=== PATIENT | female | born 1985 | race Caucasian/White ===

== ENCOUNTER 2025-10-22 21:08 | Emergency (ER) | payer MEDICAID ==
[~2025-10-22] VITALS: Ht 172.7 cm; Wt 99.8 kg
[2025-10-22 21:47] LABS: BASO # 0.1 10*3/uL (0.0-0.1); BASO % 0.4 % (0.0-1.0); EOS # 0.3 10*3/uL (0.0-0.4); EOS % 1.8 % (1.0-4.0); MEAN CELL VOLUME 87.9 fl (81.0-99.0); MEAN CORPUSCULAR HGB 29.5 pg (27.0-31.0); MEAN PLATELET VOLUME 8.2 fl (9.6-12.3); MONO # 0.7 10*3/uL (0.1-1.0); MONO % 4.1 % (3.0-9.0); NEUT # 12.4 10*3/uL (2.3-7.9); NEUT % 77.3 % (47.0-73.0); NUCLEATED RED BLOOD CELL 0.0 % (0.0-0.0); NUCLEATED RED BLOOD CELL 0.0 10*3/uL (0.0-0.0); PLATELET COUNT AUTOMATED 377 10*3/uL (130-400); RED CELL DISTRI WIDTH 13.5 % (0-14.5)
[2025-10-22 21:58] LABS: BILIRUBIN Negative (Negative); BLOOD Negative (Negative); CLARITY Clear (Clear); COLOR Yellow (Yellow); KETONE Negative (Negative); LEUKO ESTERASE Negative (Negative); NITRITE Negative (Negative); PH 6.0 (4.5-8.0); SPECIFIC GRAVITY 1.015 (1.001-1.030); UROBILINOGEN 0.2 E.U./dl (0.0-1.0)
[2025-10-22 22:00] LABS: ACT PARTIAL THROMBO TIME 23.2 SECONDS (20.0-32.1)
[2025-10-22 22:06] LABS: URINE AMPHETAMINES Negative (1000ng/ml); URINE BARBITURATES Negative (200ng/ml); URINE BENZODIAZEPINES Negative (200ng/ml); URINE CANNABINOIDS (THC) Positive (50ng/ml); URINE COCAINE Negative (300ng/ml); URINE METHADONE Negative (300ng/ml); URINE OPIATES Negative (300ng/ml); URINE PHENCYCLIDINE Negative (25ng/ml)
[2025-10-22 22:08] LABS: BACTERIA 1+; MUCOUS 1+
[2025-10-22 22:10] LABS: BUN 12 mg/dl (9-23); CPK 77 U/L (34-171); ETHYL ALCOHOL 5.2 mg/dl (<3); SGPT/ALT 526 U/L (5-49)
[2025-10-23] MEDS ORDERED: LORazepam 0.5 MG TAB PO ONE (05:40)
== END 2025-10-23 12:06 | disposition home or self-care (01) ==
LOC: ED 21:08
PROVIDERS: Internal Medicine
DX: F41.9 Anxiety disorder, unspecified (principal); Z79.01 Long term (current) use of anticoagulants